=== PATIENT | female | born 1985 | race Hispanic/Latino ===

== ENCOUNTER 2016-10-16 08:33 | Outpatient (CLI) | payer OTHER ==
--- NOTE | 2016-10-16 11:40 | ULT ---
ULTRASOUND OB: Date: 10/16/16 HISTORY: Size and dates. COMPARISON: None. TECHNIQUE: Real-time Hameed scale and color evaluation of the gravid uterus is performed. FINDINGS: Single viable intrauterine with average ultrasound age of 20 weeks and 6 days with estimat ed date of delivery of 02/27/17. Biparietal diameter of 4.67 cm, 20 weeks/1 day Head circumference is 17.84 cm, 20 weeks/2 days. Abdominal circumference is 15.65 cm, 20 weeks/6 days. Femur length is 3.33 cm, 20 weeks/3 days. Estimated weight is 13 oz, 30.5 percentile. Amniotic fluid index is 11.92 cm. The placenta is posterior and partially covers the internal os. Heart rate is documented at 142 beats/minute. Four chamber heart, kidneys, and spine are unremarkabl e. IMPRESSION: Single viable intrauterine with average ultrasound age of 20 weeks and 6 days with estimat ed date of delivery of 03/04/17. Estimated weight is 13 oz, 30.5 percentile. POS: [facility]
== END 2016-10-16 08:34 | disposition home or self-care (01) ==
LOC: NAV ULT 08:33
PROVIDERS: ATTEND Family Medicine
DX: O09.892 Supervision of other high risk pregnancies, second trimester (principal); Z3A.20 20 weeks gestation of pregnancy
CPT/HCPCS: 76805